=== PATIENT | female | born 1930 | race Caucasian/White ===

== ENCOUNTER → 2017-01-21 | Outpatient (CLI) | payer OTHER ==
[~2017-01-21] MED LIST: ADV250INH INH; ARTI99.0 OU; ASPI1TAB PO; CLOP75TA2 PO; CRES5TAB PO; PROAAER10 INH; TOVI4TAB PO; TYLE500T78 PO; VITMTA PO
--- NOTE | 2017-01-21 14:53 | REP ---
THREE-PHASE BONE SCAN: HISTORY: Status post right hip replacement. Pain. Question loosening. Right hip replacement in 2000. Recent fall 2 weeks ago injuring the right knee. COMPARISON STUDY: July 21, 2013. TECHNIQUE: 21.3 mCi technetium 99m MDP is injected and standard three-phase imaging was acquired. FINDINGS: Anterior and posterior flow study is normal. Blood pool images show photopenia from the components of the right hip prosthesis. No area of hyperemia is seen. Delayed scan images demonstrate no evidence of focal increased uptake to suggest loosening or occult fracture. IMPRESSION: Status post right hip replacement. Otherwise negative three-phase bone scan. No scintigraphic evidence to suggest loosening. Signed by Contreras Zhang MD 01/21/2017 04:24 P
== END ==
LOC: M RAD 10:57
PROVIDERS: ATTEND Orthopaedic Surgery
DX: Z47.1 Aftercare following joint replacement surgery (principal); Z96.9 Presence of functional implant, unspecified; Z98.890 Other specified postprocedural states
CPT/HCPCS: 78315; A9503

== ENCOUNTER 2019-11-21 09:44 | Inpatient (IN) | payer MEDICARE, OTHER ==
[~2019-11-21] VITALS: Ht 152.4 cm; Wt 84.5 kg
[~2019-11-21 09:44] MED LIST changes: -ARTI99.0 OU; -ASPI1TAB PO; +ASPI81TA26 PO; +POLYOPD OU
[2019-11-21] MEDS ORDERED: ONDA-83 PO (09:53)
[2019-11-21] MEDS ORDERED: ONDANSETRON 4MG/2ML VIAL IV ONE (10:30)
[2019-11-21 10:37] LABS: BASO % 0.2 % (0.0-1.0); EOS # 0.1 10^3/uL (0.0-0.5); EOS % 0.6 % (0.0-3.0); HEMATOCRIT 41.8 % (36.0-47.0); HEMOGLOBIN 13.3 g/dl (12.0-15.5); LYMPH # 1.7 10^3/uL (1.5-5.0); LYMPH % 19.5 % (24.0-44.0); MEAN CORPUSCULAR HGB CONC 31.8 g/dl (32.0-36.5); MEAN CORPUSCULAR VOLUME 94.4 fl (80.0-96.0); MONO # 0.7 10^3/uL (0.0-0.8); NEUTROPHILS # 6.2 10^3/uL (1.5-8.5); NEUTROPHILS % 71.5 % (36.0-66.0); PLATELET COUNT, AUTOMATED 225 10^3/uL (150-450); RED BLOOD COUNT 4.43 10^6/uL (4.00-5.40); WHITE BLOOD COUNT 8.6 10^3/uL (4.0-10.0)
[2019-11-21 10:47] LABS: INR 1.11
[2019-11-21] MEDS: GASTROGRAFIN SOLUTION 30ML PO SCH ×2 (10:54→11:30)
[2019-11-21] MEDS ORDERED: BREO1INH PO (11:00)
[2019-11-21] MEDS ORDERED: PRAV20TA2 PO (11:00)
[2019-11-21] MEDS ORDERED: HYDR-3363 PO (11:00)
[2019-11-21 11:01] LABS: ALBUMIN 3.5 GM/DL (3.2-5.2); BILIRUBIN,DIRECT 0.2 MG/DL (0.0-0.2); BILIRUBIN,TOTAL 0.5 MG/DL (0.2-1.0); TOTAL PROTEIN 7.4 GM/DL (6.4-8.2)
[2019-11-21] MEDS ORDERED: ISOVUE-370 76% 100ML VIAL As Ordered ONE (12:14)
[2019-11-21] MEDS: NS 1,000 ML IV SCH ×2 (12:32→23:06)
--- NOTE | 2019-11-21 12:49 | REP ---
Clinical: Right-sided abdominal and flank pain. Technique: Axial contrast enhanced images from the lung bases to the pubic symphysis using oral (per protocol) and 100 ml Isovue 370 intravenous contrast material with coronal and sagittal re-formations. Findings: Evaluation of the enteric system demonstrates a moderate midline ventral hernia containing multiple loops of bowel. Within the peritoneum at the level of the hernia there are a few mildly prominent fluid filled loops of small bowel raising the possibility of partial obstruction related to the hernia. Extensive colonic and primarily sigmoid diverticulosis is also appreciated and while there is no evidence for significant mucosal thickening or pericolonic inflammatory stranding, a very small foci of possibly extraluminal gas adjacent to the loop of distal sigmoid colon raises the possibility of acute sigmoid diverticulitis and contained perforation (images 98 - 108). No further free air or ascites is appreciated. Close clinical observation is recommended. Liver, spleen, pancreas, bilateral adrenal glands and kidneys are relatively normal / age appropriate. Evidence for prior cholecystectomy noted. Further evaluation the pelvis demonstrates collapsed bladder and age-appropriate uterus/adnexa. Evidence for right hip replacement causing streak artifact and limiting evaluation to the right flo pelvis. The osseous structures otherwise demonstrate age-related osteopenia and degenerative changes without acute abnormality. Lung bases demonstrate chronic-appearing fibroatelectatic changes. Impression: 1. Findings involving the small and large bowel including midline ventral hernia with multiple loops of bowel raising the possibility of partial obstruction as well as diffuse colonic and primarily sigmoid diverticulosis with slight possibility of sigmoid diverticulitis. Findings detailed above require close clinical observation. Electronically Signed by Senthil Meier MD 11/21/2019 12:41 P
[2019-11-21] MEDS ORDERED: ERTAPENEM SODIUM 1 GM in NS MINI-BAG PLUS 50 ML IV ONE (13:07)
[2019-11-21] MEDS ORDERED: ACET-683 PO (13:19)
[2019-11-21] MEDS ORDERED: ALBUTEROL 90 MCG/ACT 8GM HFA INHALER INH PRN (15:00)
[2019-11-21] MEDS ORDERED: ONDANSETRON 4 MG TAB PO PRN (15:00)
[2019-11-21] MEDS ORDERED: ACETAMINOPHEN 500 MG TAB PO PRN (15:00)
--- NOTE | 2019-11-21 15:13 | HPEPDOC ---
General Date of Admission 11/21/19 Date of Service: November 21, 2019 Chief Complaint The patient is a 89-year-old female admitted with a reason for visit of Constipation. Source: Patient Exam Limitations: No limitations Timing/Duration: Day(s) Severity: Moderate History of Present Illness Patient is 89 years old female with past medical history of bowel obstructions, TIA, cholecystectomy, breast cancer treated with mastectomy presented hospital with abdominal pain. Patient stated that for past few days she developed constipation with right sided abdominal pain. Of note patient had history of bowel obstructions resulting in abdominal surgeries. Patient denied any nausea or vomiting. But states that her stools was dark-colored. In emergency room patient was found to have no leukocytosis, LFT unremarkable. CT of abdomen and pelvis showed prominent fluid filled loops of small bowel raising the possibility of partial obstruction related to the hernia. Extensive colonic and primarily sigmoid diverticulosis is also appreciated and while there is no evidence for significant mucosal thickening or pericolonic inflammatory stranding, a very small foci of possibly extraluminal gas adjacent to the loop of distal sigmoid colon raises the possibility of acute sigmoid diverticulitis and contained perforation (images 98 - 108). Also, when patient was in the emergency room she developed explosive diarrhea a few times. C. difficile test came back positive. Home Medications Scheduled Aspirin (Aspirin EC) 81 Mg Tab, 81 MG PO QHS, (Reported) Clopidogrel Bisulfate (Clopidogrel) 75 Mg Tab, 75 MG PO QHS, (Reported) Fesoterodine Fumarate (Toviaz) 4 Mg Tab, 4 MG PO DAILY, (Reported) Fluticasone/Vilanterol (Breo Ellipta 100-25 Mcg INH) 1 Each Blst.w.dev, 1 PUFF PO DAILY, (Reported) Hydroxyzine HCl (Hydroxyzine HCl) 25 Mg Tablet, 25 MG PO Q8H, (Reported) Multivitamins (Thera M Plus Tablet) 1 Tab Tab, 1 TAB PO DAILY, (Reported) Pravastatin Sodium (Pravastatin Sodium) 20 Mg Tablet, 20 MG PO DAILY, (Reported) Scheduled PRN Acetaminophen (Acetaminophen) 500 Mg Tablet, 500 MG PO Q4HP PRN for PAIN, (Reported) Albuterol Sulfate (Proair Hfa) 108 Mcg/Act Aer, 2 PUFFS INH QID PRN for SHORTNESS OF BREATH, (Reported) Ondansetron HCl (Ondansetron HCl) 4 Mg Tablet, 4 MG PO Q8HP PRN for NAUSEA, (Reported) Polyvinyl Alcohol (Artificial Tears) 1.4 % Katalina, 1 DOSE OU BID PRN for DRY EYES, (Reported) Allergies Coded Allergies: TAPE (Unverified Allergy, Intermediate, TEARS SKIN, 05/25/15) latex (Verified Allergy, Unknown, 11/21/19) levofloxacin (Verified Allergy, Unknown, 11/21/19) Past Medical History Medical History COPD, osteoporosis, hypertension, coronary artery diseases, TIA, small bowel obstruction Surgical History Appendectomy, cholecystectomy, repair of ventral hernia, surgery for small bowel obstruction twice in 2002 and 2006, right hip replacement Family History I personally reviewed family history and found not pertinent Social History * Smoker: Denies Alcohol: Denies Drugs: denies A-FIB/CHADSVASC A-FIB History Current/History of A-Fib/PAF?: No Current PO Anticoag Therapy: No Review of Systems Constitutional: Denies: Chills, Fever Eyes: Denies: Pain, Vision change ENT: Denies: Head Aches Skin: Denies: Rash Pulmonary: Denies: Dyspnea, Cough Gastrointestinal: Reports: Abdominal Pain, Diarrhea Genitourinary: Denies: Dysuria, Frequency Hematologic: Denies: Bruising Endocrine: Denies: Polydipsia Musculoskeletal: Denies: Neck Pain, Back Pain Neurological: Denies: Weakness Psych: Denies: Mood Normal Physical Examination General Exam: Positive: Alert, Cooperative Eye Exam: Positive: PERRLA ENT Exam: Positive: Atraumatic Neck Exam: Positive: Supple; Negative: JVD Chest Exam: Positive: Clear to auscultation Heart Exam: Positive: Rate Normal Telemetry: Positive: No significant arrhythmia Abdomen Exam: Positive: Normal bowel sounds, Soft, Tenderness (mild tenderness in the right upper quadrant) Extremity Exam: Negative: Clubbing Skin Exam: Positive: Nl turgor and temperature Neuro Exam: Positive: Strength at 5/5 X4 ext, Cranial Nerves 3-12 NL Psych Exam: Positive: Mental status NL, Oriented x 3 Vital Signs Vital Signs Date Time Temp Pulse Resp B/P (MAP) Pulse Ox O2 Delivery O2 Flow Rate FiO2 11/21/19 14:44 65 16 11/21/19 13:44 93 11/21/19 11:26 168/71 (103) 11/21/19 09:44 96.4 Room Air Laboratory Data Labs 24H Laboratory Tests 2 11/21/19 10:24: Immature Granulocyte % (Auto) 0.2, Neutrophils (%) (Auto) 71.5H, Lymphocytes (%) (Auto) 19.5L, Monocytes (%) (Auto) 8.0H, Eosinophils (%) (Auto) 0.6, Basophils (%) (Auto) 0.2, Neutrophils # (Auto) 6.2, Lymphocytes # (Auto) 1.7, Monocytes # (Auto) 0.7, Eosinophils # (Auto) 0.1, Basophils # (Auto) 0.0, Nucleated Red Blood Cells % (auto) 0.0, Prothrombin Time 14.0, Prothromb Time International Ratio 1.11, Lactic Acid Level 1.0, Total Bilirubin 0.5, Direct Bilirubin 0.2, Aspartate Amino Transf (AST/SGOT) 22, Alanine Aminotransferase (ALT/SGPT) 17, Alkaline Phosphatase 76, Total Protein 7.4, Albumin 3.5, Albumin/Globulin Ratio 0.9L, Lipase 61L 11/21/19 10:33: POC Glucose (Misc Panel) 109H, POC Sodium (Misc Panel) 132L, POC Potassium (Misc Panel) 4.3, POC Chloride (Misc Panel) 93L, POC Total CO2 (Misc Panel) 31.0H, POC Blood Urea Nitrogen (Misc Panel 13, POC Ionized Calcium (Misc Panel) 4.3L, POC Creatinine (Misc Panel) 0.8, POC Hematocrit (Misc Panel) 44.0 CBC/BMP Laboratory Tests 11/21/19 10:24 Microbiology Microbiology 11/21/19 Gastrointestinal Tract Panel (PCR) - Final, Complete Clostridium Difficile A/B Assessment/Plan Patient is 89 years old female with past medical history of bowel obstructions, TIA, cholecystectomy, breast cancer treated with mastectomy presented hospital with abdominal pain. Patient stated that for past few days she developed constipation with right sided abdominal pain. Of note patient had history of bowel obstructions resulting in abdominal surgeries. Patient denied any nausea or vomiting. But states that her stools was dark-colored. In emergency room patient was found to have no leukocytosis, LFT unremarkable. CT of abdomen and pelvis showed prominent fluid filled loops of small bowel raising the possibility of partial obstruction related to the hernia. Extensive colonic and primarily sigmoid diverticulosis is also appreciated and while there is no evidence for significant mucosal thickening or pericolonic inflammatory stra nding, a very small foci of possibly extraluminal gas adjacent to the loop of distal sigmoid colon raises the possibility of acute sigmoid diverticulitis and contained perforation (images 98 - 108). Also, when patient was in the emergency room she developed explosive diarrhea a few times. C. difficile test came back positive. Patient is poor historian and did not provide any information about recent antibiotics use. However ED nurse told me that patient mentioned that she was treated with ampicillin for tooth infection. Problems (1) C. difficile colitis Status: Acute Problem Text: Most likely secondary to ampicillin. Presumably patient to take it for tooth infection We will talk to family to find more information Vancomycin by mouth (2) Partial bowel obstruction Status: Acute Problem Text: There is question for perforation, partial bowel obstruction and diverticulitis according to imaging study Zosyn IV Clear liquid diet for now Appreciate/agree with surgical consult (3) Coronary artery disease Status: Chronic Problem Text: I will hold Plavix for now Continue cardioprotective regimen Patient does not have any chest pain, EKG does not show any acute ischemic changes Plan / VTE VTE Prophylaxis Ordered?: Yes BANG OSULLIVAN DO November 21, 2019 15:13
[2019-11-21 17:00] VITALS: BP 150/70
[2019-11-21] MEDS: hydrOXYzine 25 MG TAB PO SCH (17:16)
[2019-11-21] MEDS: MULTIVITAMINS/MINERALS THERAP 1 TAB PO SCH (17:16)
[2019-11-21] MEDS: PIPERACILLIN/TAZOBACTAM SOD 3.375 GM in D5W MINI-BAG PLUS 50 ML IV SCH (17:16)
[2019-11-21] MEDS: VANCOMYCIN ORAL SOL 250MG/5ML ORAL SYRINGE PO SCH (17:44)
[2019-11-21] MEDS ORDERED: PRAVASTATIN 20 MG TAB PO SCH (21:00)
[2019-11-21] MEDS ORDERED: ASPIRIN 81 MG ENTERIC TAB PO SCH (21:00)
[2019-11-21] MEDS ORDERED: ENOXAPARIN 40MG/0.4ML SYRINGE (J1650 PER 10MG) SC SCH (21:00)
[2019-11-21 22:00] VITALS: BP 122/64
[2019-11-22] MEDS: VANCOMYCIN ORAL SOL 250MG/5ML ORAL SYRINGE PO SCH ×2 (00:33→05:43)
[2019-11-22] MEDS: PIPERACILLIN/TAZOBACTAM SOD 3.375 GM in D5W MINI-BAG PLUS 50 ML IV SCH ×2 (00:33→05:43)
[2019-11-22] MEDS: hydrOXYzine 25 MG TAB PO SCH ×2 (00:33→09:25)
[2019-11-22] MEDS: NS 1,000 ML IV SCH ×2 (05:43→08:32)
[2019-11-22 06:00] VITALS: BP 99/55
[2019-11-22 06:51] LABS: HEMATOCRIT 37.7 % (36.0-47.0); HEMOGLOBIN 12.2 g/dl (12.0-15.5); MEAN CORPUSCULAR HEMOGLOBIN 30.7 pg (27.0-33.0); MEAN CORPUSCULAR HGB CONC 32.4 g/dl (32.0-36.5); PLATELET COUNT, AUTOMATED 205 10^3/uL (150-450); RED BLOOD COUNT 3.97 10^6/uL (4.00-5.40); WHITE BLOOD COUNT 5.7 10^3/uL (4.0-10.0)
[2019-11-22 07:15] LABS: BLOOD UREA NITROGEN 8 MG/DL (7-18); CALCIUM LEVEL 7.3 MG/DL (8.8-10.2); CARBON DIOXIDE LEVEL 26 MEQ/L (21-32); CHLORIDE LEVEL 105 MEQ/L (98-107); CREATININE FOR GFR 0.81 MG/DL (0.55-1.30); GLOMERULAR FILTRATION RATE > 60.0 (>32); GLUCOSE, FASTING 88 MG/DL (70-100); MAGNESIUM LEVEL 2.6 MG/DL (1.8-2.4); POTASSIUM SERUM 4.6 MEQ/L (3.5-5.1); SODIUM LEVEL 137 MEQ/L (136-145)
[2019-11-22] MEDS: MULTIVITAMINS/MINERALS THERAP 1 TAB PO SCH (09:25)
[2019-11-22] MEDS ORDERED: VANC125C3 PO (09:57)
--- NOTE | 2019-11-22 10:29 | CR ---
DATE OF CONSULTATION: 11/21/2019 This is a consultation for the hospitalist service. REASON FOR CONSULTATION: CT interpretation suggesting possible bowel perforation. HISTORY OF THE PRESENT ILLNESS: The patient is a pleasant, alert 89-year-old woman who presented to the emergency department at approximately 9:45 this morning with concerns about right flank pain and lack of a bowel movement. The patient had presented to the emergency department complaining that her last bowel movement had been approximately 6 days earlier. She had developed some right flank pain with some associated nausea that worsened toward the end of the week. She took a laxative preparation on Saturday night but had no results. Her discomfort continued. On Saturday night she took another two tablets of Senokot-S and had not noticed any bowel output. She has a history of prior small bowel obstruction and so with this history she presented to the emergency department complaining about this situation. In the emergency department, she had some blood tests done and also had a CT scan of the abdomen and pelvis obtained. The CT scan was interpreted as showing some significant sigmoid diverticulosis without any evidence of acute inflammatory change. The radiologist did think there could be a small amount of air outside the lumen of the bowel consistent with a perforated diverticulum. Subsequent to the scan the patient developed explosive diarrhea. She had a stool test in the form of gastrointestinal (GI) panel, which tested positive for Clostridium difficile A/B. She is now admitted by the hospitalist for management of her problems, and I was asked to evaluate the possibility of a bowel perforation. MEDICATIONS: Prior to admission, the patient's list of medications included: - acetaminophen - albuterol inhaler - aspirin low dose daily - Plavix 75 mg at bedtime - fesoterodine fumarate 4 mg by mouth daily - Breo Ellipta 1 puff daily - hydroxyzine 25 mg by mouth every 8 hours - multivitamin tablet - Zofran as needed for nausea - Artificial Tears - pravastatin 20 mg daily ALLERGIES are listed to TAPE, LATEX, and LEVOFLOXACIN. Her surgical history includes cataract surgery. She has had an open appendectomy many years ago. This was apparently through a midline incision. She had a cholecystectomy through a right subcostal scar. She has had a right mastectomy back in 1998. She has undergone two exploratory laparotomies for bowel obstructions in about 2003 and 2006. She does have a known ventral hernia. She has had a right total hip replacement back in about 2000 and has had a bunionectomy. Medical history is significant for a history of transient ischemic attacks. She had breast cancer treated with a mastectomy many years ago. She has had several prior abdominal procedures as noted. She does have a history of chronic constipation. Family history is noncontributory. SOCIAL HISTORY: The patient is a nonsmoker. Denies any alcohol use. She lives in [place]. REVIEW OF SYSTEMS: The patient has had no chest pain. She denies any lower abdominal pain. She has had no urinary symptoms. She denies any new bone or joint issues. She has had no history of deep venous thrombosis (DVT) or pulmonary embolus. PHYSICAL EXAMINATION: The patient is a pleasant elderly woman sitting up quietly on the stretcher in the emergency department. She is alert and oriented. Her most recent vital signs show a pulse of 67. Her blood pressure was 168/71. She has been afebrile since presenting to the emergency department. Skin is perhaps slightly pale and warm and dry. Sclerae are anicteric. Heart exam shows a regular rhythm. The lungs are clear. The abdomen shows an old right subcostal scar. She has an old low midline scar extending from the epigastrium to the suprapubic area. There are some depressed areas along the lower part of the incision. She has an obvious hernia containing a loop of bowel at and slightly above the level of the umbilicus and extending slightly to the left. This is soft and nontender. The abdomen overall was soft and nontender. She does have bowel sounds present. Laboratory studies include a CBC showing a white count of 8.6, hemoglobin of 13, hematocrit of 42, and a platelet count of 225,000. Differential count shows 72% neutrophils, 20% lymphocytes, and 8% monocytes. Her chemistry profile showed a sodium of 132, potassium 4.3, chloride 93, CO2 of 31, BUN of 13, creatinine of 0.8, and a glucose of 109. Her liver function tests were all entirely normal. Lactic acid was normal at 1 and her lipase was normal at 61. She had a GI tract panel, which was positive for Clostridium difficile. IMAGING: The patient's CT scan images are reviewed personally. I also reviewed the report of the radiologist. The images clearly identify her ventral hernia, which appears to contain a loop of small bowel and perhaps a loop of her colon as well. She has definite significant diverticulosis of the sigmoid colon. There is no evident pericolonic inflammation. I am not convinced that she has any free air or even a contained perforation present. I think any air that is seen adjacent to the bowel was consistent with adjacent diverticula. There may be some minimal enlargement of the small bowel proximal to her ventral hernia, though I am not convinced that this is clinically relevant. IMPRESSION: 1. No convincing evidence for a colonic perforation. 2. Diarrhea, which may well represent just a final result from her several doses of laxatives at home, possibly combined with some contrast for her CT scan. 3. Clostridium difficile testing positive of uncertain significance. At this point, I do not believe there is any evidence either by history or exam for a bowel perforation. She had some constipation and took some laxatives at home. It could be that she had a slight bowel obstruction from her hernia contributing to her symptoms but this is not certain. It may be that be that her Clostridium (C) difficile testing is a red price and indicates only some asymptomatic carrier state. Prior to presentation she was not having diarrhea and this may be the result of her laxatives over the last several days and possibly also her oral. I will leave it to the hospitalist to address her variety of bowel issues. She certainly does not require any surgery.
--- NOTE | 2019-11-22 14:31 | DS.PDOC ---
Discharge Summary General Date of Admission November 21, 2019 at 14:45 Date of Discharge 11/22/2019 Discharge Summary PROCEDURES PERFORMED DURING STAY: [None]. ADMITTING DIAGNOSES: C. difficile colitis Partial bowel obstruction Coronary artery disease DISCHARGE DIAGNOSES: C. difficile colitis Partial bowel obstruction Coronary artery disease COMPLICATIONS/CHIEF COMPLAINT: C Difficile Colitis, Partial Bowel Obstruction. HISTORY OF PRESENT ILLNESS: Patient is 89 years old female with past medical history of bowel obstructions, TIA, cholecystectomy, breast cancer treated with mastectomy presented hospital with abdominal pain. Patient stated that for past few days she developed constipation with right sided abdominal pain. Of note patient had history of bowel obstructions resulting in abdominal surgeries. Patient denied any nausea or vomiting. But states that her stools was dark- colored. In emergency room patient was found to have no leukocytosis, LFT unremarkable. CT of abdomen and pelvis showed prominent fluid filled loops of small bowel raising the possibility of partial obstruction related to the hernia. Extensive colonic and primarily sigmoid diverticulosis is also appreciated and while there is no evidence for significant mucosal thickening or pericolonic inflammatory stranding, a very small foci of possibly extraluminal gas adjacent to the loop of distal sigmoid colon raises the possibility of acute sigmoid diverticulitis and contained perforation (images 98 - 108). Also, when patient was in the emergency room she developed explosive diarrhea a few times. C. difficile test came back positive. Patient is poor historian and did not provide any information about recent antibiotics use. However ED nurse told me that patient mentioned that she was treated with ampicillin for tooth infection. HOSPITAL COURSE: Surgical team evaluated patient, no convincing evidence for a colonic perforation. (1) C. difficile colitis Most likely secondary to ampicillin. Presumably patient took it for tooth infection Vancomycin by mouth for 10 days (2) Partial bowel obstruction partial bowel obstruction and diverticulitis according to imaging study Resolved (3) Coronary artery disease Continue cardioprotective regimen Patient does not have any chest pain, EKG does not show any acute ischemic changes DISCHARGE MEDICATIONS: Please see below. ALLERGIES: Please see below. PHYSICAL EXAMINATION ON DISCHARGE: VITAL SIGNS: Please see below. Physical Examination General Exam: Positive: Alert, Cooperative Eye Exam: Positive: PERRLA ENT Exam: Positive: Atraumatic Neck Exam: Positive: Supple; Negative: JVD Chest Exam: Positive: Clear to auscultation Heart Exam: Positive: Rate Normal Telemetry: Positive: No significant arrhythmia Abdomen Exam: Positive: Normal bowel sounds, Soft Extremity Exam: Negative: Clubbing Skin Exam: Positive: Nl turgor and temperature Neuro Exam: Positive: Strength at 5/5 X4 ext, Cranial Nerves 3-12 NL Psych Exam: Positive: Mental status NL, Oriented x 3 LABORATORY DATA: Please see below. IMAGING: [facility] NAME: HAMZAH FORREST DATE OF : 1930 AGE: 89 SEX: F REPORT #: [id number] ROOM: ED TECHNOLOGIST: LESLIE DOCTOR: JOHNNA PRESLEY DO Ordered for Date&Time: 11/21/19 1020 cc: [~ rep ct ivnm] Service Date&Time: This report is in Signed status. If this report is in a DRAFT status it has not yet been reviewed by the radiologist for accuracy. Thank you for having your radiology procedures performed at [facility] RADIOLOGY REPORT Date&Time printed: [~ rep prt dt last] [~ rep prt tm last] Page 2 of 2 [place] [address] RADIOLOGY REPORT This report is in Signed status. If this report is in a DRAFT status it has not yet been reviewed by the radiologist for accuracy. Thank you for having your radiology procedures performed at [facility] RADIOLOGY REPORT Date&Time printed: [~ rep prt dt last] [~ rep prt tm last] Page 1 of 2 Clinical: Right-sided abdominal and flank pain. Technique: Axial contrast enhanced images from the lung bases to the pubic symphysis using oral (per protocol) and 100 ml Isovue 370 intravenous contrast material with coronal and sagittal re-formations. Findings: Evaluation of the enteric system demonstrates a moderate midline ventral hernia containing multiple loops of bowel. Within the peritoneum at the level of the hernia there are a few mildly prominent fluid filled loops of small bowel raising the possibility of partial obstruction related to the hernia. Extensive colonic and primarily sigmoid diverticulosis is also appreciated and while there is no evidence for significant mucosal thickening or pericolonic inflammatory stranding, a very small foci of possibly extraluminal gas adjacent to the loop of distal sigmoid colon raises the possibility of acute sigmoid diverticulitis and contained perforation (images 98 - 108). No further free air or ascites is appreciated. Close clinical observation is recommended. Liver, spleen, pancreas, bilateral adrenal glands and kidneys are relatively normal / age appropriate. Evidence for prior cholecystectomy noted. Further evaluation the pelvis demonstrates collapsed bladder and age-appropriate uterus/adnexa. Evidence for right hip replacement causing streak artifact and limiting evaluation to the right flo pelvis. The osseous structures otherwise demonstrate age-related osteopenia and degenerative changes without acute abnormality. Lung bases demonstrate chronic-appearing fibroatelectatic changes. Impression: 1. Findings involving the small and large bowel including midline ventral hernia with multiple loops of bowel raising the possibility of partial obstruction as well as diffuse colonic and primarily sigmoid diverticulosis with slight possibility of sigmoid diverticulitis. Findings detailed above require close clinical observation. Electronically Signed by Senthil Meier MD 11/21/2019 12:41 P DD: Senthil Meier MD 11/21/19 1231 DT: Ebonie 11/21/19 1241 DS: HAILEY 11/21/19 1241 11/21/19 1241 [~ rep ct labl] PROGNOSIS: Fair ACTIVITY: [As tolerated]. DIET: Cardiac DISPOSITION: 01 Home, Self-Care. ITEMS TO FOLLOWUP ON ON OUTPATIENT: PCP DISCHARGE CONDITION: [Stable]. TIME SPENT ON DISCHARGE: Greater than 20 minutes. Vital Signs/I&Os Vital Signs Date Time Temp Pulse Resp B/P (MAP) Pulse Ox O2 Delivery O2 Flow Rate FiO2 11/22/19 06:00 98.1 54 18 99/55 (70) 91 Room Air I&O- Last 24 Hours up to 6 AM 11/22/19 06:00 Intake Total 630 ml Output Total 0 ml Balance 630 ml Laboratory Data Labs 24H Laboratory Tests 2 11/22/19 06:39: Nucleated Red Blood Cells % (auto) 0.0, Anion Gap 6L, Glomerular Filtration Rate > 60.0, Calcium Level 7.3L, Magnesium Level 2.6H CBC/BMP Laboratory Tests 11/22/19 06:39 Microbiology Microbiology 11/21/19 Gastrointestinal Tract Panel (PCR) - Final, Complete Clostridium Difficile A/B Discharge Medications Scheduled Aspirin (Aspirin EC) 81 Mg Tab, 81 MG PO QHS, (Reported) Clopidogrel Bisulfate (Clopidogrel) 75 Mg Tab, 75 MG PO QHS, (Reported) Fesoterodine Fumarate (Toviaz) 4 Mg Tab, 4 MG PO DAILY, (Reported) Fluticasone/Vilanterol (Breo Ellipta 100-25 Mcg INH) 1 Each Blst.w.dev, 1 PUFF PO DAILY, (Reported) Hydroxyzine HCl (Hydroxyzine HCl) 25 Mg Tablet, 25 MG PO Q8H, (Reported) Multivitamins (Thera M Plus Tablet) 1 Tab Tab, 1 TAB PO DAILY, (Reported) Pravastatin Sodium (Pravastatin Sodium) 20 Mg Tablet, 20 MG PO DAILY, (Reported) Vancomycin Hcl (Vancomycin HCl) 125 Mg Capsule, 125 MG PO QID Scheduled PRN Acetaminophen (Acetaminophen) 500 Mg Tablet, 500 MG PO Q4HP PRN for PAIN, (Reported) Albuterol Sulfate (Proair Hfa) 108 Mcg/Act Aer, 2 PUFFS INH QID PRN for SHORTNESS OF BREATH, (Reported) Ondansetron HCl (Ondansetron HCl) 4 Mg Tablet, 4 MG PO Q8HP PRN for NAUSEA, (Reported) Polyvinyl Alcohol (Artificial Tears) 1.4 % Katalina, 1 DOSE OU BID PRN for DRY EYES, (Reported) Allergies Coded Allergies: TAPE (Unverified Allergy, Intermediate, TEARS SKIN, 05/25/15) latex (Verified Allergy, Unknown, 11/21/19) levofloxacin (Verified Allergy, Unknown, 11/21/19) BANG OSULLIVAN DO November 22, 2019 14:31
[2019-11-23] MEDS ORDERED: PREVNAR 13 VACCINE SYRINGE (CPT CODE:90670) IM ONE (09:00)
== END 2019-11-22 13:05 | disposition home or self-care (01) | DRG 372 ==
LOC: M ED 09:44 → M ED INP 14:45 → ENRESERV 14:58 → M MS5PR 17:03
PROVIDERS: ADMIT Internal Medicine; ATTEND Internal Medicine
DX: A04.72 Enterocolitis due to Clostridium difficile, not specified as recurrent (principal); K43.6 Other and unspecified ventral hernia with obstruction, without gangrene; I25.10 Atherosclerotic heart disease of native coronary artery without angina pectoris; K57.30 Diverticulosis of large intestine without perforation or abscess without bleeding; I10 Essential (primary) hypertension; J44.9 Chronic obstructive pulmonary disease, unspecified; M81.0 Age-related osteoporosis without current pathological fracture; K59.09 Other constipation; Z86.73 Personal history of transient ischemic attack (TIA), and cerebral infarction without residual deficits; Z85.3 Personal history of malignant neoplasm of breast; Z79.02 Long term (current) use of antithrombotics/antiplatelets; Z79.82 Long term (current) use of aspirin; Z79.899 Other long term (current) drug therapy; Z88.1 Allergy status to other antibiotic agents; Z91.040 Latex allergy status; Z91.048 Other nonmedicinal substance allergy status; Z96.641 Presence of right artificial hip joint; Z90.11 Acquired absence of right breast and nipple